=== PATIENT | female | born 1935 | race Caucasian/White ===

== ENCOUNTER 2017-01-01 13:32 | Emergency (ER) | payer MEDICARE, OTHER, MEDICAID ==
--- NOTE | 2017-01-01 15:00 | EDM.PDOC ---
ED HPI Trauma - General Chief Complaint: Lower Extremity Injury/Pain Stated Complaint: R HIP PAIN Time Seen by Provider: 01/01/17 14:00 Source: Reports: Patient, Old records ( ER visit) History Limitations: Reports: No limitations - History of Present Illness INITIAL COMMENTS - FREE TEXT/NARRATIVE: Patient presents for evaluation and treatment of right hip pain. Patient reports that she has been experiencing right hip pain she fell in August. She was seen in our ER after the fall. She had x-rays done which were negative. She states since then she saw her primary care provider who sent her to physical therapy. she feels that physical therapy has worsened the pain. She reports it is located in the right hip and radiates to the right knee and right rectum. She denies any falls since her August fall. She says she's been taking 2 extra strength Tylenol every 6 hours but continues to have worsening pain. She states that she's been sitting on ice all day due to the pain. She is supposed to see her primary care provider today but the bus did not come and was unable to be rescheduled today. She was instructed to come to the ER for care. She's not having imaging since August. Denies any numbness or tingling to the right lower leg. She has been able to weight bear with a walker but reports pain with walking. Pain/Injury Location: Reports: pelvis (right hip) Associated Symptoms: Reports: trouble walking Allergies/ADRs: Allergies ciprofloxacin Allergy (Verified 01/01/17 13:50) Hypertension cortisone [Cortisone] Allergy (Verified 01/01/17 13:50) Rash gabapentin Allergy (Verified 01/01/17 13:50) Dizziness Home Medications: Ambulatory Orders Aspirin/Calcium Carbonate/Mag [Aspirin Buffered 325 mg Tab] 1 tab PO DAILY 10/27 [Confirmed 01/01/17] Estradiol [Estrace 0.01% Vaginal Crm] 1 dose VAG ASDIRECTED 10/27/14 [Confirmed 01/01/17] Hypromellose [GenTeal Severe Dry Eye Gel] 1 dose EYEBOTH QID PRN 10/27/14 [ Confirmed 01/01/17] Acetaminophen [Mapap] 1,000 mg PO TID 06/29/15 [Confirmed 01/01/17] Calcium Carb/Magnesium Oxid/D3 [Calcium Magnesium + D] 500 mg PO DAILY 06/29/15 [Confirmed 01/01/17] Diltiazem [Cardizem CD] 120 mg PO DAILY 06/29/15 [Confirmed 01/01/17] Levothyroxine [Synthroid] 88 mcg PO DAILY 06/29/15 [Confirmed 01/01/17] Lisinopril 20 mg PO DAILY 06/29/15 [Confirmed 01/01/17] Potassium 99 mg PO BEDTIME 06/29/15 [Confirmed 01/01/17] Simvastatin [Zocor] 40 mg PO BEDTIME 06/29/15 [Confirmed 01/01/17] Triamcinolone Acetonide [Triamcinolone Acetonide 0.1% Crm] 30 gm TOP BID [Confirmed 01/01/17] metFORMIN [Glucophage XR] 1,000 mg PO BID 06/29/15 [Confirmed 01/01/17] Past Medical History HEENT History: Reports: Impaired vision Cardiovascular History: Reports: Arrhythmia, Heart murmur, Hypertension Endocrine/Metabolic History: Reports: Diabetes, type II, Hypothyroidism - Past Surgical History GI Surgical History: Reports: Appendectomy Female Surgical History: Reports: Hysterectomy Musculoskeletal Surgical History: Reports: Knee replacement Other Musculoskeletal Surgeries/Procedures:: Tailbone surgery Social & Family History - Family History Family Medical History: Noncontributory - Tobacco Use Smoking Status *Q: Never Smoker Second Hand Smoke Exposure: No - Caffeine Use Caffeine Use: Reports: Coffee - Alcohol Use Days Per Week of Alcohol Use: 0 - Recreational Drug Use Recreational Drug Use: No Review of Systems - Review of Systems Review Of Systems: See Below Musculoskeletal: Reports: other (right hip pain that extends from the right hip to the right lateral knee and rectum) Neurological: Reports: Difficulty Walking (due to pain). Denies: Numbness, Tingling Trauma Exam - Physical Exam Exam: See Below Exam Limited By: No limitations General Appearance: Reports: alert, WD/WN, no apparent distress Respiratory Exam: Reports: no respiratory distress, lungs clear, normal breath sounds Cardiovascular: Reports: normal peripheral pulses, regular rate, rhythm, no murmur Back: Denies: vertebral tenderness Extremities: Reports: pain with movement (pain with internal and external rotation of the right hip; pain with flexion of the right hip; ), other ( previous right knee replacment scar). Denies: unable to bear weight Neurologic: Reports: alert, normal mood/affect Skin: Reports: Normal color, Warm/dry. Denies: Ecchymosis Course - Vital Signs Last Recorded V/S: Last Vital Signs Temp 36.3 C 01/01/17 13:45 Pulse 94 01/01/17 13:45 Resp 16 01/01/17 13:45 BP 162/74 H 01/01/17 13:45 Pulse Ox 96 01/01/17 13:45 - Radiology Interpretation Free Text/Narrative:: CT of the pelvis without contrast impression per Dr. Sue: 1. Sever degenerative change within the right hip. Degenerative change partially seen within the lower lumbar spine mostly involving the apophyseal joints. 2. No acute fracture is seen. CT Results Date: 01/01/17 - Re-Assessments/Exams Free Text/Narrative Re-Assessment/Exam: 01/01/17 15:[address] results with the patient. I feel the arthritis is likely causing her symptoms. I will prescribe tramadol for the pain. She has a walker at home. I will have her follow-up with orthopedics for further management and care. Discharge instructions as documented. Departure - Departure Time of Disposition: 16:02 Disposition: Home, Self-Care 01 Condition: fair Clinical Impression: Arthritis of right hip Referrals: Mandeep Frost Jr, MD [Primary Care Provider] - Arnold Topete MD [Physician] - Forms: ED Department Discharge Additional Instructions: Tramadol 50mg tabs 1 tab PO every 4-6 hours prn pain #20 called [facility]. They will deliver this tomorrow. Take the tramadol as prescribed. One tab every 4-6 hours as needed for severe pain. You may take this with Tylenol. Continue to ice the area. Continue use your walker for safety. Follow up with orthopedics within the next [address] Topete. Call [phone] to schedule with him. Or Dr. Mcarthur. Call [phone] to schedule with him. Please return to the ER should your symptoms change or worsen.
--- NOTE | 2017-01-01 15:04 | CT ---
CT pelvis Technique: Multiple axial sections through the pelvis and hips were obtained. Reconstructed coronal and sagittal images were also obtained. Findings: Severe joint space narrowing is seen within the right hip with subchondral cysts and degenerative sclerosis. Minimal joint space narrowing is seen within the left hip. Sacroiliac joints show vacuum phenomena. Degenerative change is partially visualized within the lower lumbar spine primarily involving the apophyseal joints. No fracture is appreciated. Impression: 1. Severe degenerative change within the right hip. Degenerative change partially seen within the lower lumbar spine mostly involving the apophyseal joints. 2. No acute fracture is seen. Diagnostic code #2
[2017-01-01 17:44] VITALS: BP 156/85
== END 2017-01-01 15:50 | disposition home or self-care (01) ==
LOC: JD.ED 13:32
DX: M16.11 Unilateral primary osteoarthritis, right hip (principal); I10 Essential (primary) hypertension; E11.9 Type 2 diabetes mellitus without complications; Z79.84 Long term (current) use of oral hypoglycemic drugs; E03.9 Hypothyroidism, unspecified; Z96.659 Presence of unspecified artificial knee joint; Z79.82 Long term (current) use of aspirin; Z79.899 Other long term (current) drug therapy; Z88.1 Allergy status to other antibiotic agents; Z88.8 Allergy status to other drugs, medicaments and biological substances
CPT/HCPCS: 72192; 72192-26; 99284; 99284-25

== ENCOUNTER 2017-04-22 12:45 | Inpatient (IN) | payer MEDICARE, OTHER, MEDICAID ==
[2017-05-20] MEDS ORDERED: Sodium Chloride 0.9% 10 ML Syringe FLUSH PRN (00:01)
[2017-05-20] MEDS ORDERED: Lidocaine 1%/Sod Bicarbonate in NS 8.4% 1 ML Syringe PRN (00:01)
[2017-05-20] MEDS ORDERED: Lactated Ringers 1,000 ML IV SCH (00:01)
[2017-05-20] MEDS ORDERED: Ondansetron 4 MG/2 ML SDV IVPUSH PRN ×2 (09:14→14:10)
[2017-05-20] MEDS ORDERED: Morphine 8 MG, EPINEPHrine 0.3 MG, Cefuroxime 750 MG, Ketorolac 30 MG, Sodium Chloride ... ONE ×5 (10:30)
[2017-05-20] MEDS ORDERED: Iodine/Sodium Iodide 2% Tincture 30 ML Bottle ONE (11:05)
[2017-05-20] MEDS ORDERED: ceFAZolin 1 GM Vial ONE ×2 (11:05→11:52)
[2017-05-20] MEDS ORDERED: Bupivacaine 0.25% 30 ML SDV ONE (11:05)
--- NOTE | 2017-05-20 11:23 | PCM.PREANE ---
Preanesthetic Assessment - Anesthesia/Transfusion/Family Hx Anesthesia History: Prior Anesthesia Reaction Type of Anesthesia Reaction: Excessive Nausea/Vomiting Family History of Anesthesia Reaction: No Transfusion History: Prior Transfusion Without Reaction Intubation History: Unknown - Review of Systems General: No Symptoms, Fatigue (due to hip pain) Pulmonary: No Symptoms Cardiovascular: No Symptoms (History of HTN), Lightheadedness (with position changes.) Gastrointestinal: Decreased Appetite, Diarrhea Neurological: No Symptoms Other: Reports: Easy Bruising, Diabetes (1105 blood sugar = 97), Thyroid Problems (hypothyroid) - Physical Assessment NPO Status Date: 05/19/17 NPO Status Time: 23:00 Pulse: 86 O2 Sat by Pulse Oximetry: 97 Respiratory Rate: 16 Blood Pressure: 133/74 Temperature: 37.1 C Height: 1.57 m Weight: 54.885 kg ASA Class: 2 Mental Status: Alert & Oriented x3 Airway Class: Mallampati = 2 Dentition: Reports: Dentures (upper ), Missing Tooth/Teeth (bottom) Thyro-Mental Finger Breadths: 3 Mouth Opening Finger Breadths: 3 ROM/Head Extension: Full Lungs: Clear to Auscultation, Normal Respiratory Effort Cardiovascular: Regular Rate, Regular Rhythm, No Murmurs - Lab Values: Laboratory Last Values POC Glucose 97 mg/dL (83-110) 05/20/17 11:05 MRSA (PCR) Negative 05/08/17 08:16 Lab values noted and acceptable to proceed with scheduled procedure. - Imaging/EKG Impressions: EKG: SR, Right BBB, Old inferior infarct, with a normal echocardiogram noted with EF= 75% CXR: unremarkable on 2014 - Allergies Allergies/Adverse Reactions: Allergies Allergy/AdvReac Type Severity Reaction Status Date / Time cortisone [Cortisone] Allergy Rash Verified 05/17/17 12:58 ciprofloxacin AdvReac Hypertensio Verified 05/17/17 12:58 n gabapentin AdvReac Dizziness Verified 05/17/17 12:58 - Anesthesia Plan Pre-Op Medication Ordered: None - Acknowledgements Anesthesia Type Planned: Spinal Pt an Appropriate Candidate for the Planned Anesthesia: Yes Alternatives and Risks of Anesthesia Discussed w Pt/Guardian: Yes Pt/Guardian Understands and Agrees with Anesthesia Plan: Yes PreAnesthesia Questionnaire HEENT History: Reports: Impaired Vision, Other (See Below) Other HEENT History: wears glasses, upper denture Cardiovascular History: Reports: Arrhythmia, Heart Murmur, Hypertension Respiratory History: Reports: None Gastrointestinal History: Reports: None Genitourinary History: Reports: 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 Musculoskeletal History: Reports: Other (See Below) Other Musculoskeletal History: degenreative joint disease Neurological History: Reports: None Psychiatric History: Reports: None Endocrine/Metabolic History: Reports: Diabetes, Type II, Hypothyroidism Hematologic History: Reports: None Immunologic History: Reports: None Oncologic (Cancer) History: Reports: None Dermatologic History: Reports: None - Past Surgical History Head Surgeries/Procedures: Reports: None HEENT Surgical History: Reports: Cataract Surgery Respiratory Surgical History: Reports: None GI Surgical History: Reports: Appendectomy, Colonoscopy Female Surgical History: Reports: Hysterectomy Male Surgical History: Reports: None Endocrine Surgical History: Reports: Thyroidectomy Neurological Surgical History: Reports: None Musculoskeletal Surgical History: Reports: Knee Replacement Other Musculoskeletal Surgeries/Procedures:: Tailbone surgery Oncologic Surgical History: Reports: None Dermatological Surgical History: Reports: None - SUBSTANCE USE Smoking Status *Q: Never Smoker Second Hand Smoke Exposure: No Days Per Week of Alcohol Use: 0 Recreational Drug Use History: No - HOME MEDS Home Medications: Home Meds Estradiol [Estrace 0.01% Vaginal Crm] 1 dose VAG ASDIRECTED 10/27/14 [History] Hypromellose [GenTeal Severe Dry Eye Gel] 1 dose EYEBOTH QID PRN 10/27/14 [ History] Levothyroxine [Synthroid] 88 mcg PO DAILY 06/29/15 [History] Lisinopril 20 mg PO DAILY 06/29/15 [History] Potassium 99 mg PO BEDTIME 06/29/15 [History] Simvastatin [Zocor] 40 mg PO BEDTIME 06/29/15 [History] metFORMIN [Glucophage XR] 1,000 mg PO DAILY 06/29/15 [History] Acetaminophen [Tylenol Extra Strength] 1,000 mg PO TID PRN 05/17/17 [History] Aspirin 81 mg PO DAILY 05/17/17 [History] Ca Carbonate/Vitamin D3/Vit K [Calcium + D Soft Chewable Tab] 1 tab PO DAILY [History] Celecoxib 200 mg PO DAILY 05/17/17 [History] Diltiazem HCl [Diltiazem 24Hr ER] 120 mg PO DAILY 05/17/17 [History] Levothyroxine [Synthroid] 88 mcg PO DAILY 05/17/17 [History] metFORMIN [Glucophage XR] 500 mg PO QPM 05/17/17 [History] traMADol HCl [Tramadol HCl] 50 mg PO Q4H PRN 05/17/17 [History] - CURRENT (IN HOUSE) MEDS Current Meds: Current Medications Hydrocodone Bitart/Acetaminophen ([place] 325-5 Mg) 1 - 2 tab PO Q4H PRN PRN Reason: Pain Aspirin (Ecotrin) 325 mg PO BID [facility] Bisacodyl (Dulcolax) 5 mg PO DAILY PRN PRN Reason: Constipation Docusate Sodium (Colace) 100 mg PO BID [facility] Famotidine (Pepcid) 20 mg PO Q12H [facility] Lactated Ringer's (Ringers, Lactated) 1,000 mls @ 125 mls/hr IV ASDIRECTED [facility] Stop: 05/20/17 23:00 Cefazolin Sodium/Dextrose 2 gm (/ Premix) 50 mls @ 100 mls/hr IV Q8H [facility] Stop: 05/21/17 01:44 Lidocaine/Sodium Bicarbonate (Buffered Lidocaine 1% In Ns 8.4%) 0.25 ml .XX ONETIME PRN PRN Reason: Prior to IV Start Stop: 05/20/17 18:00 Magnesium Hydroxide (Milk Of Magnesia) 30 ml PO BID PRN PRN Reason: Constipation Morphine Sulfate (Morphine) 2 mg IVPUSH Q2H PRN PRN Reason: Breakthrough Pain Multivitamins (Thera) 1 each PO WITHBREAKFAST [facility] Naloxone HCl (Narcan) 0.1 mg IVPUSH Q5M PRN PRN Reason: Oversedation Ondansetron HCl (Zofran) 4 mg IVPUSH Q6H PRN PRN Reason: Nausea/Vomiting Senna (Senna) 8.6 mg PO BID PRN PRN Reason: Constipation Sodium Chloride (Saline Flush) 10 ml FLUSH ASDIRECTED PRN PRN Reason: Keep Vein Open Stop: 05/20/17 18:00 Discontinued Medications Morphine Sulfate 8 mg/Epinephrine HCl 0.3 mg/Cefuroxime Sodium 750 mg/Ketorolac Tromethamine 30 mg/Sodium Chloride 27.9 ml 0 mg .XX ONETIME ONE Stop: 05/20/17 10:31
[2017-05-20] MEDS ORDERED: Scopolamine 1.5 MG Transdermal Patch TRDERM ONE (11:45)
[2017-05-20] MEDS ORDERED: Propofol 200 MG/20 ML SDV ONE ×3 (11:51→13:45)
[2017-05-20] MEDS ORDERED: fentaNYL 100 MCG/2 ML SDV ONE (11:52)
[2017-05-20] MEDS ORDERED: Morphine PF 10 MG/10 ML SDV ONE (11:57)
[2017-05-20] MEDS ORDERED: Vancomycin 1 GM SDV ONE (11:58)
[2017-05-20] MEDS ORDERED: Morphine 2 MG/ML Syringe IVPUSH PRN (12:00)
[2017-05-20] MEDS ORDERED: Magnesium Hydroxide 400 MG/5 ML Susp 30 ML Cup PO PRN (12:00)
[2017-05-20] MEDS ORDERED: Sennosides 8.6 MG Tab PO PRN (12:00)
[2017-05-20] MEDS ORDERED: Bisacodyl 5 MG Tab PO PRN (12:00)
[2017-05-20] MEDS ORDERED: Naloxone 0.4 MG/ML SDV IVPUSH PRN (12:00)
[2017-05-20] MEDS ORDERED: diphenhydrAMINE 50 MG/ML SDV IVPUSH PRN (14:10)
--- NOTE | 2017-05-20 14:29 | PCM.POSTAN ---
POST ANESTHESIA ASSESSMENT - MENTAL STATUS Mental Status: Alert, Oriented - VITAL SIGNS Pulse Rate: 82 SaO2: 94 Resp Rate: 12 Blood Pressure: 116/59 Temperature: 97 C - RESPIRATORY Respiratory Status: Respiratory Rate WNL, Airway Patent, O2 Saturation Stable, Supplemental Oxygen - CARDIOVASCULAR CV Status: Pulse Rate WNL, Blood Pressure Stable - GASTROINTESTINAL GI Status: No Symptoms - PAIN Pain Score: 0 - POST OP HYDRATION Hydration Status: Adequate & Stable
--- NOTE | 2017-05-20 15:14 | PCM.CONS ---
H&P History of Present Illness - General Date of Service: 05/20/17 Admit Problem/Dx: Admission Diagnosis/Problem Admission Diagnosis/Problem Osteoarthritis of hip Source of Information: Patient, Old Records, Provider, RN Notes Reviewed History Limitations: Reports: Physical Impairment - History of Present Illness Initial Comments - Free Text/Narative: This is a 81-year-old, white female, with past medical history of HTN, DM2, Hypothyroidism, and OA/DJD who underwent right total hip arthroplasty post operative day zero. Patient is doing relatively well but her pressures are somewhat elevated. Currently, her pain is controlled. She denies any acute issues. Hospital Medicine was consulted for postoperative care. Right Hip Pain Score (Numeric/FACES): 10 - Related Data Allergies/Adverse Reactions: Allergies Allergy/AdvReac Type Severity Reaction Status Date / Time cortisone [Cortisone] Allergy Rash Verified 05/20/17 11:50 ciprofloxacin AdvReac Hypertensio Verified 05/20/17 11:50 n gabapentin AdvReac Dizziness Verified 05/20/17 11:50 Home Medications: Home Meds Estradiol [Estrace 0.01% Vaginal Crm] 1 dose VAG ASDIRECTED 10/27/14 [History] Hypromellose [GenTeal Severe Dry Eye Gel] 1 dose EYEBOTH TID PRN 10/27/14 [ History] Lisinopril 20 mg PO DAILY 06/29/15 [History] Potassium 99 mg PO BEDTIME 06/29/15 [History] Simvastatin [Zocor] 40 mg PO BEDTIME 06/29/15 [History] metFORMIN [Glucophage XR] 1,000 mg PO DAILY 06/29/15 [History] Acetaminophen [Tylenol Extra Strength] 1,000 mg PO TID PRN 05/17/17 [History] Aspirin 81 mg PO DAILY 05/17/17 [History] Ca Carbonate/Vitamin D3/Vit K [Calcium + D Soft Chewable Tab] 1 tab PO DAILY [History] Celecoxib 200 mg PO DAILY 05/17/17 [History] Diltiazem HCl [Diltiazem 24Hr ER] 120 mg PO DAILY 05/17/17 [History] Levothyroxine [Synthroid] 88 mcg PO DAILY 05/17/17 [History] metFORMIN [Glucophage XR] 500 mg PO QPM 05/17/17 [History] traMADol HCl [Tramadol HCl] 50 mg PO Q4H PRN 05/17/17 [History] Sodium Chloride 3.5 gm OP DAILY 05/20/17 [History] Past Medical History HEENT History: Reports: Impaired Vision, Other (See Below) Other HEENT History: wears glasses, upper denture Cardiovascular History: Reports: Arrhythmia, Heart Murmur, Hypertension Respiratory History: Reports: None Gastrointestinal History: Reports: None Genitourinary History: Reports: None 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 Musculoskeletal History: Reports: Other (See Below) Other Musculoskeletal History: degenreative joint disease Neurological History: Reports: None Psychiatric History: Reports: None Endocrine/Metabolic History: Reports: Diabetes, Type II, Hypothyroidism Hematologic History: Reports: None Immunologic History: Reports: None Oncologic (Cancer) History: Reports: None Dermatologic History: Reports: None - Past Surgical History Head Surgeries/Procedures: Reports: None HEENT Surgical History: Reports: Cataract Surgery Respiratory Surgical History: Reports: None GI Surgical History: Reports: Appendectomy, Colonoscopy Female Surgical History: Reports: Hysterectomy Male Surgical History: Reports: None Endocrine Surgical History: Reports: Thyroidectomy Neurological Surgical History: Reports: None Musculoskeletal Surgical History: Reports: Knee Replacement Other Musculoskeletal Surgeries/Procedures:: Tailbone surgery Oncologic Surgical History: Reports: None Dermatological Surgical History: Reports: None Social & Family History - Family History Family Medical History: Noncontributory - Tobacco Use Smoking Status *Q: Never Smoker Second Hand Smoke Exposure: No - Caffeine Use Caffeine Use: Reports: Coffee - Alcohol Use Days Per Week of Alcohol Use: 0 - Recreational Drug Use Recreational Drug Use: No H&P Review of Systems - Review of Systems: Review Of Systems: See Below General: Denies: Fever, Chills, Malaise, Weakness HEENT: Denies: Contact Lenses Pulmonary: Denies: Shortness of Breath Cardiovascular: Denies: Chest Pain, Lightheadedness Gastrointestinal: Denies: Abdominal Pain, Nausea, Vomiting Genitourinary: Reports: No Symptoms Musculoskeletal: Reports: No Symptoms Skin: Reports: No Symptoms Psychiatric: Denies: Confusion, Depression, Anxiety, Hallucinations, Suicidal Ideation, Homicidal Ideation Neurological: Reports: Difficulty Walking, Gait Disturbance. Denies: Confusion , Dizziness, Weakness Hematologic/Lymphatic: Reports: No Symptoms Immunologic: Reports: No Symptoms Exam - Exam Exam: See Below - Vital Signs Vital Signs: Last Vital Signs Temp 36.6 C 05/20/17 15:10 Pulse 82 05/20/17 14:29 Resp 16 05/20/17 15:10 BP 133/68 05/20/17 15:10 Pulse Ox 95 05/20/17 15:10 Weight: 54.885 kg - Exam General: Alert, Oriented, Cooperative. No: Mild Distress HEENT: Conjunctiva Clear, EACs Clear, EOMI, Hearing Intact, Mucosa Moist & [place] , Nares Patent, Normal Nasal Septum, Posterior Pharynx Clear, Pupils Equal, Pupils Reactive Neck: Supple, Trachea Midline, +2 Carotid Pulse wo Bruit, Full Range of Motion Lungs: Clear to Auscultation, Normal Respiratory Effort Cardiovascular: Regular Rate, Regular Rhythm GI/Abdominal Exam: Normal Bowel Sounds, Soft, Non-Tender, No Organomegaly, No Distention, No Abnormal Bruit, No Mass (Female) Exam: Deferred Rectal (Female) Exam: Deferred Back Exam: Normal Inspection, Decreased Range of Motion Extremities: Normal Inspection, Normal Range of Motion, Non-Tender, No Pedal Edema, Normal Capillary Refill Peripheral Pulses: 2+: Posterior Tibial (L), Posterior Tibial (R), Dorsalis Pedis (L), Dorsalis Pedis (R) Skin: Warm, Dry, Intact Neuro Extensive - Mental Status: Oriented x3, Normal Cognition, Memory Intact Neuro Extensive - Motor, Sensory, Reflexes: CN II-XII Intact (limited but grossly intact), Abnormal Gait Psychiatric: Alert, Normal Affect, Normal Mood - Patient Data Lab Results Last 24 hrs: Laboratory Results - last 24 hr 05/20/17 05/20/17 Range/Units 11:05 11:40 POC Glucose 97 (83-110) mg/dL Blood Type O POSITIVE Gel Antibody Screen Negative Consult PN Assessment/Plan POD#: 0 Procedures: Procedures ASSAY OF LIPASE (07/09/15) ASSAY OF TROPONIN QUANT (07/09/15) BONE IMAGING 3 PHASE (12/26/15) C-REACTIVE PROTEIN (05/16/17) CHEST X-RAY 1 VIEW FRONTAL (07/09/15) COMPLETE CBC W/AUTO DIFF WBC (07/09/15) COMPREHEN METABOLIC PANEL (07/09/15) CT PELVIS W/O DYE (01/01/17) DRAIN/INJ JOINT/BURSA W/O US (02/12/17) ELECTROCARDIOGRAM TRACING (07/09/15) EMERGENCY DEPT VISIT (01/01/17) EMERGENCY DEPT VISIT (09/03/16) EMERGENCY DEPT VISIT (07/09/15) EMERGENCY DEPT VISIT (06/29/15) EMERGENCY DEPT VISIT (02/03/14) INJECT SPINE LUMBAR/SACRAL (10/27/14) ROUTINE VENIPUNCTURE (05/16/17) THROMBOPLASTIN TIME PARTIAL (05/16/17) URINALYSIS AUTO W/SCOPE (10/10/16) URINE CULTURE/COLONY COUNT (10/12/16) X-RAY EXAM HIP UNI 2-3 VIEWS (09/03/16) X-RAY EXAM OF KNEE 3 (09/03/16) Problem List Initiated/Reviewed/Updated: Yes Plan: Assessment: Acute: Post-Operative Care State - Stable - Continue to monitor for hemodynamic instability S/p Tight Total Hip Arthroplasty - Stable - DVT and Pain Management as per primary team Hx/o Chronic Right Hip Pain 2/2 OA/DJD - Pain Management as per primary team Post Operative Hypertension - BPs: 142-164 mmHg systolic and 65-90 mmHg diastolic - PRN anti-hypertensive medications Chronic: HTN DM2 Hypothyroidism OA/DJD Plan: She is clinically stable Routine AM labs Accu-check AM/HS ISS low dose Continue home meds PT/OT consult IS q2 awake Thank you for the opportunity to participate in the management of this patient Requesting Provider: Dr. Mcarthur Date Consult Requested: 05/20/17 Patient History Reviewed: Yes Admission H&P Reviewed: Yes Consult Result/Summary: Clinically Stable but a little hypertensive Notified Requestor: Yes
--- NOTE | 2017-05-20 15:27 | CR ---
Pelvis and right hip: AP of the pelvis was obtained as well as lateral view of the right hip. Comparison: Previous CT pelvis exam of 01/01/17. Right hip prosthesis is seen. Components are aligned. Underlying bony structures are intact. Joint space within the left hip is maintained. Sacroiliac joints on the right side are slightly narrowed. Impression: 1. Recently placed right hip prosthesis. 2. Other incidental findings. Diagnostic code #3
[2017-05-20] MEDS ORDERED: Pneumococcal Polyvalent-23 Vaccine 0.5 ML SDV IM ONE (16:30)
[2017-05-20] MEDS: Acetaminophen/HYDROcodone 325-5 MG Tab PO PRN ×2 (18:05→23:54)
[2017-05-20] MEDS ORDERED: Metoprolol Tartrate 5 MG/5 ML SDV IVPUSH PRN (18:45)
[2017-05-20] MEDS ORDERED: Acetaminophen 325 MG Tab PO PRN (18:45)
[2017-05-20] MEDS ORDERED: hydrALAZINE 20 MG/ML SDV IVPUSH PRN (18:45)
[2017-05-20] MEDS ORDERED: 50% Dextrose in Water 50 ML Syringe IVPUSH PRN (19:00)
[2017-05-20] MEDS: Insulin Aspart 100 Units/ML 3 ML Pen SUBCUT SCH ×2 (20:15→21:14)
[2017-05-20] MEDS ORDERED: Simvastatin 40 MG Tab PO SCH (21:00)
[2017-05-20] MEDS ORDERED: Famotidine 20 MG Tab PO SCH (21:00)
[2017-05-20] MEDS ORDERED: Hypromellose 0.5% Ophth Soln 15 ML Bottle EYEBOTH PRN (21:17)
[2017-05-20] MEDS: ceFAZolin 2 GM in Premix Bag 1 BAG IV SCH (21:18)
[2017-05-20] MEDS: Docusate Sodium 100 MG Cap PO SCH (21:25)
[2017-05-21] MEDS: ceFAZolin 2 GM in Premix Bag 1 BAG IV SCH ×2 (04:48→11:45)
[2017-05-21] MEDS: Acetaminophen/HYDROcodone 325-5 MG Tab PO PRN ×2 (04:52→11:46)
[2017-05-21] MEDS: Insulin Aspart 100 Units/ML 3 ML Pen SUBCUT SCH ×2 (06:10→11:33)
[2017-05-21] MEDS ORDERED: Multivitamins,Therapeutic Tab PO SCH (07:00)
[2017-05-21] MEDS ORDERED: Sodium Chloride 0.9% 500 ML IV ONE (07:10)
[2017-05-21] MEDS: Sodium Chloride 0.9% 1,000 ML ONE ×2 (07:40→07:42)
--- NOTE | 2017-05-21 08:50 | PCM48HPAN ---
Post Anesthesia Note - EVALUATION WITHIN 48HRS OF ANESTHETIC Vital Signs in Normal Range: Yes Patient Participated in Evaluation: Yes Respiratory Function Stable: Yes Airway Patent: Yes Cardiovascular Function Stable: Yes Hydration Status Stable: Yes Pain Control Satisfactory: Yes Nausea and Vomiting Control Satisfactory: Yes Mental Status Recovered: Yes - COMMENTS/OBSERVATIONS Free Text/Narrative:: Patient denied any headache, residual numbness/tingling to lower extremities, or back pain.
[2017-05-21] MEDS ORDERED: Famotidine 20 MG Tab PO SCH (09:00)
[2017-05-21] MEDS ORDERED: Levothyroxine 88 MCG Tab PO SCH (09:00)
[2017-05-21] MEDS ORDERED: Lisinopril 20 MG Tab PO SCH (09:00)
[2017-05-21] MEDS ORDERED: metFORMIN 500 MG Tab PO SCH ×2 (09:00→16:00)
[2017-05-21] MEDS ORDERED: Aspirin 325 MG Tab.EC PO SCH (09:00)
[2017-05-21] MEDS ORDERED: Diltiazem 120 MG Cap.CD PO SCH (09:00)
[2017-05-21] MEDS ORDERED: Calcium Carbonate/Vitamin D3 1500 MG-200 Units Tab PO SCH (09:00)
[2017-05-21] MEDS: Docusate Sodium 100 MG Cap PO SCH (09:08)
[2017-05-21] MEDS ORDERED: Diphtheria,Pertussis(Acell),Tetanus Vaccine 0.5 ML SDV IM ONE (09:14)
--- NOTE | 2017-05-21 12:52 | PCM.CONSN ---
- General Info Date of Service: 05/21/17 Admission Dx/Problem (Free Text): Admission Diagnosis/Problem Admission Diagnosis/Problem Osteoarthritis of hip POD #[address] Mcarthur Patient is doing well today, no pain currently, no nausea. Working with PT/OT. Plans for DC home today with her daughter. Hgb is stable at 9.5 Functional Status: Reports: Pain Controlled, Tolerating Diet, Ambulating, Urinating, Incentive Spirometry. Denies: New Symptoms - Review of Systems General: Reports: No Symptoms HEENT: Reports: No Symptoms Pulmonary: Reports: No Symptoms Cardiovascular: Reports: No Symptoms Gastrointestinal: Reports: No Symptoms Genitourinary: Reports: No Symptoms Musculoskeletal: Reports: Leg Pain Skin: Reports: No Symptoms Neurological: Reports: No Symptoms Psychiatric: Reports: No Symptoms - Patient Data Vitals - Most Recent: Last Vital Signs Temp 98.4 F 05/21/17 08:13 Pulse 80 05/21/17 09:08 Resp 14 05/21/17 08:13 BP 109/63 05/21/17 09:10 Pulse Ox 98 05/21/17 08:13 Weight - Most Recent: 126 lb I&O - Last 24 Hours: Intake & Output 05/20/17 05/21/17 05/21/17 22:59 06:59 14:59 Intake Total 560 975 180 Output Total 175 150 Balance 385 825 180 Lab Results Last 24 Hours: Laboratory Results - last 24 hr 05/20/17 05/21/17 05/21/17 Range/Units 21:11 06:05 06:05 WBC 13.67 H (3.98-10.04) K/mm3 RBC 3.48 L (3.98-5.22) M/mm3 Hgb 9.5 L (11.2-15.7) gm/L Hct 30.8 L (34.1-44.9) % MCV 88.5 (79.4-94.8) fl MCH 27.3 (25.6-32.2) pg MCHC 30.8 L (32.2-35.5) g/dl RDW Std Deviation 46.6 H (36.4-46.3) fL Plt Count 471 H (182-369) K/mm3 MPV 9.3 L (9.4-12.3) fl Neut % (Auto) 68.4 (34.0-71.1) % Lymph % (Auto) 12.9 L (19.3-51.7) % Hawkins % (Auto) 17.6 H (4.7-12.5) % Eos % (Auto) 0.2 L (0.7-5.8) Baso % (Auto) 0.3 (0.1-1.2) % Neut # (Auto) 9.35 H (1.56-6.13) K/mm3 Lymph # (Auto) 1.76 (1.18-3.74) K/mm3 Hawkins # (Auto) 2.41 H (0.24-0.36) K/mm3 Eos # (Auto) 0.03 L (0.04-0.36) K/mm3 Baso # (Auto) 0.04 (0.01-0.08) K/mm3 Manual Slide Review Abnormal smear Sodium 136 (136-145) mEq/L Potassium 4.1 (3.5-5.1) mEq/L Chloride 102 (98-107) mEq/L Carbon Dioxide 28 (21-32) mEq/L Anion Gap 10.1 (5-15) BUN 15 (7-18) mg/dL Creatinine 0.9 (0.55-1.02) mg/dL Est Cr Clr Drug Dosing 38.25 mL/min Estimated GFR (MDRD) > 60 (>60) mL/min BUN/Creatinine Ratio 16.7 (14-18) Glucose 117 H (83-115) mg/dL POC Glucose 141 H (83-110) mg/dL Calcium 8.6 (8.5-10.1) mg/dL Total Bilirubin 0.2 (0.2-1.0) mg/dL AST 23 (15-37) U/L ALT 19 (14-59) U/L Alkaline Phosphatase 66 (46-116) U/L Total Protein 5.6 L (6.4-8.2) g/dl Albumin 2.9 L (3.4-5.0) g/dl Globulin 2.7 gm/dL Albumin/Globulin Ratio 1.1 (1-2) 05/21/17 05/21/17 Range/Units 06:06 11:25 WBC (3.98-10.04) K/mm3 RBC (3.98-5.22) M/mm3 Hgb (11.2-15.7) gm/L Hct (34.1-44.9) % MCV (79.4-94.8) fl MCH (25.6-32.2) pg MCHC (32.2-35.5) g/dl RDW Std Deviation (36.4-46.3) fL Plt Count (182-369) K/mm3 MPV (9.4-12.3) fl Neut % (Auto) (34.0-71.1) % Lymph % (Auto) (19.3-51.7) % Hawkins % (Auto) (4.7-12.5) % Eos % (Auto) (0.7-5.8) Baso % (Auto) (0.1-1.2) % Neut # (Auto) (1.56-6.13) K/mm3 Lymph # (Auto) (1.18-3.74) K/mm3 Hawkins # (Auto) (0.24-0.36) K/mm3 Eos # (Auto) (0.04-0.36) K/mm3 Baso # (Auto) (0.01-0.08) K/mm3 Manual Slide Review Sodium (136-145) mEq/L Potassium (3.5-5.1) mEq/L Chloride (98-107) mEq/L Carbon Dioxide (21-32) mEq/L Anion Gap (5-15) BUN (7-18) mg/dL Creatinine (0.55-1.02) mg/dL Est Cr Clr Drug Dosing mL/min Estimated GFR (MDRD) (>60) mL/min BUN/Creatinine Ratio (14-18) Glucose (83-115) mg/dL POC Glucose 133 H 169 H (83-110) mg/dL Calcium (8.5-10.1) mg/dL Total Bilirubin (0.2-1.0) mg/dL AST (15-37) U/L ALT (14-59) U/L Alkaline Phosphatase (46-116) U/L Total Protein (6.4-8.2) g/dl Albumin (3.4-5.0) g/dl Globulin gm/dL Albumin/Globulin Ratio (1-2) Med Orders - Current: Current Medications Acetaminophen (Tylenol) 975 mg PO TID PRN PRN Reason: Pain Hydrocodone Bitart/Acetaminophen ([place] 325-5 Mg) 1 - 2 tab PO Q4H PRN PRN Reason: Pain Last Admin: 05/21/17 11:46 Dose: 2 tab Artificial Tears (Isopto Tears 0.5% Ophth Soln) 0 ml EYEBOTH TID PRN PRN Reason: Dry Eyes Aspirin (Ecotrin) 325 mg PO BID [facility] Last Admin: 05/21/17 09:09 Dose: 325 mg Bisacodyl (Dulcolax) 5 mg PO DAILY PRN PRN Reason: Constipation Calcium Carbonate (Calcium Carbonate/Vitamin D 1500 Mg-200 Unit) 1 tab PO DAILY [facility] Last Admin: 05/21/17 09:12 Dose: 1 tab Dextrose/Water (Dextrose 50% In Water) 50 ml IVPUSH ASDIRECTED PRN PRN Reason: Hypoglycemia Diltiazem HCl (Cardizem Cd) 120 mg PO DAILY [facility] Last Admin: 05/21/17 09:08 Dose: 120 mg Docusate Sodium (Colace) 100 mg PO BID [facility] Last Admin: 05/21/17 09:08 Dose: 100 mg Famotidine (Pepcid) 20 mg PO DAILY [facility] Last Admin: 05/21/17 09:11 Dose: 20 mg Hydralazine HCl (Apresoline) 10 mg IVPUSH Q4H PRN PRN Reason: Hypertension Insulin Aspart (Novolog) 0 unit SUBCUT QIDACANDBED [facility] PRN Reason: Protocol Last Admin: 05/21/17 11:33 Dose: 1 unit Levothyroxine Sodium (Synthroid) 88 mcg PO DAILY [facility] Last Admin: 05/21/17 09:09 Dose: 88 mcg Lisinopril (Prinivil) 20 mg PO DAILY [facility] Last Admin: 05/21/17 09:10 Dose: 20 mg Magnesium Hydroxide (Milk Of Magnesia) 30 ml PO BID PRN PRN Reason: Constipation Metformin HCl (Glucophage) 500 mg PO ACDINNER [facility] Metformin HCl (Glucophage) 1,000 mg PO ACBRK [facility] Metoprolol Tartrate (Lopressor) 5 mg IVPUSH Q4H PRN PRN Reason: Tachycardia Morphine Sulfate (Morphine) 2 mg IVPUSH Q2H PRN PRN Reason: Breakthrough Pain Multivitamins (Thera) 1 each PO WITHBREAKFAST [facility] Last Admin: 05/21/17 06:05 Dose: 1 each Naloxone HCl (Narcan) 0.1 mg IVPUSH Q5M PRN PRN Reason: Oversedation Ondansetron HCl (Zofran) 4 mg IVPUSH Q6H PRN PRN Reason: Nausea/Vomiting Last Admin: 05/20/17 21:20 Dose: 4 mg Estradiol Vaginal (Cream) 0 each VAG ASDIRECTED [facility] Potassium 99 Mg 0 each PO DAILY@1700 [facility] Sodium Chloride 3.5 (Gm Opth Ointment) 0 each .XX DAILY@1930 [facility] Senna (Senna) 8.6 mg PO BID PRN PRN Reason: Constipation Simvastatin (Zocor) 40 mg PO BEDTIME [facility] Last Admin: 05/20/17 21:25 Dose: 40 mg Discontinued Medications Bupivacaine HCl (Marcaine 0.25%) Confirm Administered Dose 30 ml .ROUTE .STK- MED ONE Stop: 05/20/17 11:06 Last Admin: 05/20/17 13:45 Dose: 30 ml Cefazolin Sodium (Ancef) Confirm Administered Dose 2 gm .ROUTE .STK-MED ONE Stop: 05/20/17 11:06 Last Admin: 05/20/17 13:45 Dose: 2 gm Cefazolin Sodium (Ancef) Confirm Administered Dose 2 gm .ROUTE .STK-MED ONE Stop: 05/20/17 11:53 Morphine Sulfate 8 mg/Epinephrine HCl 0.3 mg/Cefuroxime Sodium 750 mg/Ketorolac Tromethamine 30 mg/Sodium Chloride 27.9 ml 0 mg .XX ONETIME ONE Stop: 05/20/17 10:31 Last Admin: 05/20/17 13:47 Dose: 788.3 mg Diphenhydramine HCl (Benadryl) 25 mg IVPUSH Q6H PRN PRN Reason: Pruritis Stop: 05/20/17 18:00 Diphtheria/Tetanus/Acell Pertussis (Adacel) 0.5 ml IM .ONCE ONE Stop: 05/21/17 09:15 Famotidine (Pepcid) 20 mg PO Q12H [facility] Last Admin: 05/20/17 21:25 Dose: 20 mg Fentanyl (Sublimaze) Confirm Administered Dose 100 mcg .ROUTE .STK-MED ONE Stop: 05/20/17 11:53 Lactated Ringer's (Ringers, Lactated) 1,000 mls @ 125 mls/hr IV ASDIRECTED [facility] Stop: 05/20/17 23:00 Last Admin: 05/20/17 11:10 Dose: 125 mls/hr Cefazolin Sodium/Dextrose 2 gm (/ Premix) 50 mls @ 100 mls/hr IV Q8H [facility] Stop: 05/21/17 12:29 Last Admin: 05/21/17 11:45 Dose: 100 mls/hr Sodium Chloride (Normal Saline) 500 mls @ 999 mls/hr IV .BOLUS ONE Stop: 05/21/17 07:40 Last Admin: 05/21/17 07:10 Dose: 999 mls/hr Sodium Chloride (Normal Saline) Confirm Administered Dose 1,000 mls @ as directed .ROUTE .STK-MED ONE Stop: 05/21/17 06:48 Last Admin: 05/21/17 07:42 Dose: Not Given Iodine (Iodine 2% Mild Tincture) Confirm Administered Dose 30 ml .ROUTE .STK- MED ONE Stop: 05/20/17 11:06 Last Admin: 05/20/17 13:40 Dose: 30 ml Lidocaine/Sodium Bicarbonate (Buffered Lidocaine 1% In Ns 8.4%) 0.25 ml .XX ONETIME PRN PRN Reason: Prior to IV Start Stop: 05/20/17 18:00 Last Admin: 05/20/17 11:09 Dose: 0.25 ml Metformin HCl (Glucophage) 1,000 mg PO DAILY [facility] Last Admin: 05/21/17 09:12 Dose: 1,000 mg Morphine Sulfate (Duramorph Pf) Confirm Administered Dose 10 mg .ROUTE .STK-MED ONE Stop: 05/20/17 11:58 Ondansetron HCl (Zofran) 4 mg IVPUSH ONETIME PRN PRN Reason: Nausea/Vomiting Stop: 05/20/17 18:00 Pneumococcal Polyvalent Vaccine (Pneumovax 23) 0.5 ml IM .ONCE ONE Stop: 05/20/17 16:31 Propofol (Diprivan 20 Ml) Confirm Administered Dose 200 mg .ROUTE .STK-MED ONE Stop: 05/20/17 11:52 Propofol (Diprivan 20 Ml) Confirm Administered Dose 200 mg .ROUTE .STK-MED ONE Stop: 05/20/17 13:45 Scopolamine (Transderm-Scop) 1.5 mg TRDERM ONETIME ONE Stop: 05/20/17 11:46 Last Admin: 05/20/17 11:40 Dose: 1.5 mg Sodium Chloride (Saline Flush) 10 ml FLUSH ASDIRECTED PRN PRN Reason: Keep Vein Open Stop: 05/20/17 18:00 Tranexamic Acid (Cyklokapron) Confirm Administered Dose 1,000 mg .ROUTE .STK- MED ONE Stop: 05/20/17 11:05 Last Admin: 05/20/17 13:58 Dose: 1,000 mg Vancomycin HCl (Vancomycin) Confirm Administered Dose 1 gm .ROUTE .STK-MED ONE Stop: 05/20/17 11:59 Last Admin: 05/20/17 14:00 Dose: 1 gm - Exam Quality Assessment: DVT Prophylaxis General: Alert, Oriented, Cooperative, No Acute Distress HEENT: Pupils Equal, EOMI, Mucous Membr. Moist/[place] Neck: Supple Lungs: Clear to Auscultation, Normal Respiratory Effort, Decreased Breath Sounds (bases) Cardiovascular: Regular Rate, Regular Rhythm GI/Abdominal Exam: Normal Bowel Sounds, Soft, No Organomegaly (Female) Exam: Deferred Back Exam: Normal Inspection Extremities: Other (Teds, SCD's, ice present to hip) Peripheral Pulses: 2+: Dorsalis Pedis (L), Dorsalis Pedis (R) Neurological: No New Focal Deficit Psy/Mental Status: Alert, Normal Affect, Normal Mood Consult PN Assessment/Plan POD#: 1 Procedures: Procedures ASSAY OF LIPASE (07/09/15) ASSAY OF TROPONIN QUANT (07/09/15) BONE IMAGING 3 PHASE (12/26/15) C-REACTIVE PROTEIN (05/16/17) CHEST X-RAY 1 VIEW FRONTAL (07/09/15) COMPLETE CBC W/AUTO DIFF WBC (07/09/15) COMPREHEN METABOLIC PANEL (07/09/15) CT PELVIS W/O DYE (01/01/17) DRAIN/INJ JOINT/BURSA W/O US (02/12/17) ELECTROCARDIOGRAM TRACING (07/09/15) EMERGENCY DEPT VISIT (01/01/17) EMERGENCY DEPT VISIT (09/03/16) EMERGENCY DEPT VISIT (07/09/15) EMERGENCY DEPT VISIT (06/29/15) EMERGENCY DEPT VISIT (02/03/14) INJECT SPINE LUMBAR/SACRAL (10/27/14) ROUTINE VENIPUNCTURE (05/16/17) THROMBOPLASTIN TIME PARTIAL (05/16/17) URINALYSIS AUTO W/SCOPE (10/10/16) URINE CULTURE/COLONY COUNT (10/12/16) X-RAY EXAM HIP UNI 2-3 VIEWS (09/03/16) X-RAY EXAM OF KNEE 3 (09/03/16) (1) S/P total hip arthroplasty SNOMED Code(s): 897766579478, 459193471902 Code(s): Z96.649 - PRESENCE OF UNSPECIFIED ARTIFICIAL HIP JOINT Priority: High Current Visit: Yes Qualifiers: Laterality: right Qualified Code(s): Z96.641 - Presence of right artificial hip joint (2) Osteoarthritis SNOMED Code(s): 920733238 Code(s): M19.90 - UNSPECIFIED OSTEOARTHRITIS, UNSPECIFIED SITE Priority: High Current Visit: Yes Qualifiers: Osteoarthritis location: hip Osteoarthritis type: primary Laterality: right Qualified Code(s): M16.11 - Unilateral primary osteoarthritis, right hip (3) Diabetes type 2, controlled SNOMED Code(s): 04339356 Code(s): E11.9 - TYPE 2 DIABETES MELLITUS WITHOUT COMPLICATIONS Priority: High Current Visit: Yes Qualifiers: Diabetes mellitus complication status: without complication Diabetes mellitus termite control representative insulin use: without termite control representative use Qualified Code(s): E11.9 - Type 2 diabetes mellitus without complications (4) HTN (hypertension) SNOMED Code(s): 58240883 Code(s): I10 - ESSENTIAL (PRIMARY) HYPERTENSION Priority: Medium Current Visit: Yes Qualifiers: Hypertension type: essential hypertension Qualified Code(s): I10 - Essential (primary) hypertension (5) Hypothyroid SNOMED Code(s): 15355957 Code(s): E03.9 - HYPOTHYROIDISM, UNSPECIFIED Priority: Medium Current Visit: No Qualifiers: Hypothyroidism type: unspecified Qualified Code(s): E03.9 - Hypothyroidism , unspecified Problem List Initiated/Reviewed/Updated: Yes Plan: I/P: S/P Lt TKA d/t Osteoarthritis -POD #[address] Mcarthur -Pain management and DVT prophylax per primary team -PT/OT -RT/IS -Hgb 9.5 today -VSS Chronic conditions: continue home meds HTN- stable DM- stable, SSI during hospital stay. A1C 5.7 on 05/14/17 by chart review/notes Hypothryoidism Other: CM/SW for assist with DC planning--Patient plans DC home with daughter today; OK for dc today from Hospitalist standpoint; doing well. Patient is Full Code Status
[2017-05-21] MEDS ORDERED: Tamsulosin 0.4 MG Cap.ER PO ONE (13:13)
[2017-05-21 15:58] VITALS: BP 109/94
[2017-05-21] MEDS ORDERED: SODIUM CHLORIDE SCH (19:30)
[2017-05-22] MEDS ORDERED: metFORMIN 500 MG Tab PO SCH (06:00)
--- NOTE | 2017-05-23 09:52 | PCM.SURGPN ---
- General Info Date of Service: 05/21/17 POD#: 1 Functional Status: Reports: Pain Controlled, Tolerating Diet, Ambulating, Urinating, Other (The pt has urinary retention following surgery, however, she has been able to void now.) - Review of Systems Musculoskeletal: Reports: Other (The pt has met inpatient therapy goals.) - Patient Data Vitals - Most Recent: Last Vital Signs Temp 98.4 F 05/21/17 15:14 Pulse 101 H 05/21/17 15:14 Resp 14 05/21/17 11:43 BP 109/94 H 05/21/17 15:14 Pulse Ox 95 05/21/17 15:14 Weight - Most Recent: 126 lb Med Orders - Current: Current Medications Discontinued Medications Acetaminophen (Tylenol) 975 mg PO TID PRN PRN Reason: Pain Hydrocodone Bitart/Acetaminophen ([place] 325-5 Mg) 1 - 2 tab PO Q4H PRN PRN Reason: Pain Last Admin: 05/21/17 11:46 Dose: 2 tab Artificial Tears (Isopto Tears 0.5% Ophth Soln) 0 ml EYEBOTH TID PRN PRN Reason: Dry Eyes Aspirin (Ecotrin) 325 mg PO BID COUNTS [facility]CLUDE 234 BEDS AT [facility] Last Admin: 05/21/17 09:09 Dose: 325 mg Bisacodyl (Dulcolax) 5 mg PO DAILY PRN PRN Reason: Constipation Bupivacaine HCl (Marcaine 0.25%) Confirm Administered Dose 30 ml .ROUTE .STK- MED ONE Stop: 05/20/17 11:06 Last Admin: 05/20/17 13:45 Dose: 30 ml Calcium Carbonate (Calcium Carbonate/Vitamin D 1500 Mg-200 Unit) 1 tab PO DAILY COUNTS INCLUDE 234 BEDS AT [facility] Last Admin: 05/21/17 09:12 Dose: 1 tab Cefazolin Sodium (Ancef) Confirm Administered Dose 2 gm .ROUTE .STK-MED ONE Stop: 05/20/17 11:06 Last Admin: 05/20/17 13:45 Dose: 2 gm Cefazolin Sodium (Ancef) Confirm Administered Dose 2 gm .ROUTE .STK-MED ONE Stop: 05/20/17 11:53 Morphine Sulfate 8 mg/Epinephrine HCl 0.3 mg/Cefuroxime Sodium 750 mg/Ketorolac Tromethamine 30 mg/Sodium Chloride 27.9 ml 0 mg .XX ONETIME ONE Stop: 05/20/17 10:31 Last Admin: 05/20/17 13:47 Dose: 788.3 mg Dextrose/Water (Dextrose 50% In Water) 50 ml IVPUSH ASDIRECTED PRN PRN Reason: Hypoglycemia Diltiazem HCl (Cardizem Cd) 120 mg PO DAILY COUNTS INCLUDE 234 BEDS AT [facility] Last Admin: 05/21/17 09:08 Dose: 120 mg Diphenhydramine HCl (Benadryl) 25 mg IVPUSH Q6H PRN PRN Reason: Pruritis Stop: 05/20/17 18:00 Diphtheria/Tetanus/Acell Pertussis (Adacel) 0.5 ml IM .ONCE ONE Stop: 05/21/17 09:15 Last Admin: 05/21/17 15:34 Dose: Not Given Docusate Sodium (Colace) 100 mg PO BID COUNTS INCLUDE 234 BEDS AT [facility] Last Admin: 05/21/17 09:08 Dose: 100 mg Famotidine (Pepcid) 20 mg PO Q12H COUNTS INCLUDE 234 BEDS AT [facility] Last Admin: 05/20/17 21:25 Dose: 20 mg Famotidine (Pepcid) 20 mg PO DAILY COUNTS INCLUDE 234 BEDS AT [facility] Last Admin: 05/21/17 09:11 Dose: 20 mg Fentanyl (Sublimaze) Confirm Administered Dose 100 mcg .ROUTE .STK-MED ONE Stop: 05/20/17 11:53 Hydralazine HCl (Apresoline) 10 mg IVPUSH Q4H PRN PRN Reason: Hypertension Lactated Ringer's (Ringers, Lactated) 1,000 mls @ 125 mls/hr IV ASDIRECTED COUNTS INCLUDE 234 BEDS AT [facility] Stop: 05/20/17 23:00 Last Admin: 05/20/17 11:10 Dose: 125 mls/hr Cefazolin Sodium/Dextrose 2 gm (/ Premix) 50 mls @ 100 mls/hr IV Q8H COUNTS INCLUDE 234 BEDS AT [facility] Stop: 05/21/17 12:29 Last Admin: 05/21/17 11:45 Dose: 100 mls/hr Sodium Chloride (Normal Saline) 500 mls @ 999 mls/hr IV .BOLUS ONE Stop: 05/21/17 07:40 Last Admin: 05/21/17 07:10 Dose: 999 mls/hr Sodium Chloride (Normal Saline) Confirm Administered Dose 1,000 mls @ as directed .ROUTE .STK-MED ONE Stop: 05/21/17 06:48 Last Admin: 05/21/17 07:42 Dose: Not Given Insulin Aspart (Novolog) 0 unit SUBCUT QIDACANDBED COUNTS INCLUDE 234 BEDS AT [facility] PRN Reason: Protocol Last Admin: 05/21/17 11:33 Dose: 1 unit Iodine (Iodine 2% Mild Tincture) Confirm Administered Dose 30 ml .ROUTE .STK- MED ONE Stop: 05/20/17 11:06 Last Admin: 05/20/17 13:40 Dose: 30 ml Levothyroxine Sodium (Synthroid) 88 mcg PO DAILY [facility]S INCLUDE 234 BEDS AT [facility] Last Admin: 05/21/17 09:09 Dose: 88 mcg Lidocaine/Sodium Bicarbonate (Buffered Lidocaine 1% In Ns 8.4%) 0.25 ml .XX ONETIME PRN PRN Reason: Prior to IV Start Stop: 05/20/17 18:00 Last Admin: 05/20/17 11:09 Dose: 0.25 ml Lisinopril (Prinivil) 20 mg PO DAILY [facility]S [facility]CLUDE 234 BEDS AT [facility] Last Admin: 05/21/17 09:10 Dose: 20 mg Magnesium Hydroxide (Milk Of Magnesia) 30 ml PO BID PRN PRN Reason: Constipation Metformin HCl (Glucophage) 1,000 mg PO DAILY COUNTS INCLUDE 234 BEDS AT [facility] Last Admin: 05/21/17 09:12 Dose: 1,000 mg Metformin HCl (Glucophage) 500 mg PO ACDINNER COUNTS INCLUDE 234 BEDS AT [facility] Last Admin: 05/21/17 15:16 Dose: 500 mg Metformin HCl (Glucophage) 1,000 mg PO ACBRK COUNTS INCLUDE 234 BEDS AT [facility] Metoprolol Tartrate (Lopressor) 5 mg IVPUSH Q4H PRN PRN Reason: Tachycardia Morphine Sulfate (Morphine) 2 mg IVPUSH Q2H PRN PRN Reason: Breakthrough Pain Morphine Sulfate (Duramorph Pf) Confirm Administered Dose 10 mg .ROUTE .STK-MED ONE Stop: 05/20/17 11:58 Multivitamins (Thera) 1 each PO WITHBREAKFAST COUNTS INCLUDE 234 BEDS AT [facility] Last Admin: 05/21/17 06:05 Dose: 1 each Naloxone HCl (Narcan) 0.1 mg IVPUSH Q5M PRN PRN Reason: Oversedation Ondansetron HCl (Zofran) 4 mg IVPUSH Q6H PRN PRN Reason: Nausea/Vomiting Last Admin: 05/20/17 21:20 Dose: 4 mg Ondansetron HCl (Zofran) 4 mg IVPUSH ONETIME PRN PRN Reason: Nausea/Vomiting Stop: 05/20/17 18:00 Estradiol Vaginal (Cream) 0 each VAG ASDIRECTED COUNTS INCLUDE 234 BEDS AT THE [facility] Potassium 99 Mg 0 each PO DAILY@1700 COUNTS INCLUDE 234 BEDS AT THE [facility] Sodium Chloride 3.5 (Gm Opth Ointment) 0 each .XX DAILY@1930 COUNTS INCLUDE 234 BEDS AT THE [facility] Pneumococcal Polyvalent Vaccine (Pneumovax 23) 0.5 ml IM .ONCE ONE Stop: 05/20/17 16:31 Last Admin: 05/21/17 15:34 Dose: Not Given Propofol (Diprivan 20 Ml) Confirm Administered Dose 200 mg .ROUTE .STK-MED ONE Stop: 05/20/17 11:52 Propofol (Diprivan 20 Ml) Confirm Administered Dose 200 mg .ROUTE .STK-MED ONE Stop: 05/20/17 13:45 Scopolamine (Transderm-Scop) 1.5 mg TRDERM ONETIME ONE Stop: 05/20/17 11:46 Last Admin: 05/20/17 11:40 Dose: 1.5 mg Senna (Senna) 8.6 mg PO BID PRN PRN Reason: Constipation Simvastatin (Zocor) 40 mg PO BEDTIME COUNTS INCLUDE 234 BEDS AT [facility] Last Admin: 05/20/17 21:25 Dose: 40 mg Sodium Chloride (Saline Flush) 10 ml FLUSH ASDIRECTED PRN PRN Reason: Keep Vein Open Stop: 05/20/17 18:00 Tamsulosin HCl (Flomax) 0.4 mg PO ONETIME ONE Stop: 05/21/17 13:14 Last Admin: 05/21/17 14:04 Dose: 0.4 mg Tranexamic Acid (Cyklokapron) Confirm Administered Dose 1,000 mg .ROUTE .STK- MED ONE Stop: 05/20/17 11:05 Last Admin: 05/20/17 13:58 Dose: 1,000 mg Vancomycin HCl (Vancomycin) Confirm Administered Dose 1 gm .ROUTE .STK-MED ONE Stop: 05/20/17 11:59 Last Admin: 05/20/17 14:00 Dose: 1 gm - Exam Wound/Incisions: Dressing Dry and Intact General: Alert, Cooperative, No Acute Distress Lungs: Normal Respiratory Effort Extremities: Other (NVS intact for BLE. Gael's negative for BLE. Right thigh soft, min tender.) - Problem List Review Problem List Initiated/Reviewed/Updated: Yes - Assessment Assessment (Free Text/Narrative):: POD#1 - right MANSI - Plan Plan (Free Text/Narrative):: 1. Hgb 9.5 today. 2. Discharge to home with daughter. 3. 325mg ASA BID and TEDs, frequent mobility for VTE prophylaxis. The pt's case was discussed with Dr. Mcarthur.
--- NOTE | 2017-05-23 09:54 | PCM.DCSUM1 ---
Discharge Summary - Hospital Course Brief History: Shahida is a 81 yo female who underwent right MANSI with Dr. Mcarthur on . The procedure was completed under spinal anesthesia with sedation. The pt tolerated the procedures well and was admitted to the Medical-Surgical Unit. The pt received justyna-operative antibiotic therapy. Medical managment was provided by the Hospitalist service and the pt's hospital course was uneventful. A Mepilex dressing was applied to the surgical site at the time of surgery and this remained clean and dry. On POD#1, 325mg ASA BID was initiated for VTE prophylaxis. SCDs and TEDs were also used. The pt participated in P.T. and O.T. and progressed well. On POD#1, the pt's Hgb was 9.5. On POD#1, the pt was deemed appropriate for discharge to home with her daughter. - Discharge Data Discharge Date: 05/21/17 Discharge Disposition: Home, Self-Care 01 Condition: Good - Patient Summary/Data Consults: Consultations 05/20/17 09:14 Consult to Case Management [CONS] Routine Consult to Physician [CONS] Routine OT Evaluation and Treatment [CONS] Routine 05/20/17 09:18 PT Evaluation and Treatment [CONS] Routine 05/21/17 12:25 Consult to Diabetic Nurse Specialist [CONS] Routine - Patient Instructions Diet: Drink 8-10+ Glasses/Day, Diabetic Diet Activity: As Tolerated Activity, Other: MANSI precautions. Driving: Do Not Drive Showering/Bathing: May Shower Showering/Bathing, Other: Keep dressing in place until follow-up. Wound/Incision Care: Keep Operative Site/Wound Site Clean and Dry, Do NOT Change Dressing Notify Provider of: Fever, Increased Pain, Swelling and Redness, Drainage, Nausea and/or Vomiting Other/Special Instructions: Please get up and moving around every hour while awake. This helps to prevent blood clots. Please use your walker and have help with mobility as needed. Please take a 325mg ASPIRIN TWICE DAILY. This also helps to prevent blood clots. Follow the hip precautions that were instructed in the Hospital. You may schedule for P.T. Use the pain medication as needed. The medication may cause drowsiness and constipation. Contact your primary care provider for instructions if you are constipated. You may use a stool softener like docusate sodium or Colace 100mg twice daily and/or a laxative like Miralax daily for constipation. Wear the JULI hose during the day and you may remove these at night. Place ice to the hip often. Place a towel between your skin and the blue pad. Schedule an appointment with your primary care provider for 'routine post-op care'. Call the Clinic with questions or concerns - [phone]. - Discharge Plan Prescriptions/Med Rec: Acetaminophen/HYDROcodone [[place] 325-5 MG] 1 - 2 tab PO Q4H PRN #60 tablet PRN Reason: Pain Aspirin [Ecotrin] 325 mg PO BID #84 tab.ec Home Medications: Home Meds Estradiol [Estrace 0.01% Vaginal Crm] 1 dose VAG ASDIRECTED 10/27/14 [History] Hypromellose [GenTeal Severe Dry Eye Gel] 1 dose EYEBOTH TID PRN 10/27/14 [ History] Lisinopril 20 mg PO DAILY 06/29/15 [History] Potassium 99 mg PO BEDTIME 06/29/15 [History] Simvastatin [Zocor] 40 mg PO BEDTIME 06/29/15 [History] Acetaminophen [Tylenol Extra Strength] 1,000 mg PO TID PRN 05/17/17 [History] Ca Carbonate/Vitamin D3/Vit K [Calcium + D Soft Chewable Tab] 1 tab PO DAILY [History] Diltiazem HCl [Diltiazem 24Hr ER] 120 mg PO DAILY 05/17/17 [History] Levothyroxine [Synthroid] 88 mcg PO DAILY 05/17/17 [History] Sodium Chloride 3.5 gm OP DAILY 05/20/17 [History] Acetaminophen/HYDROcodone [[place] 325-5 MG] 1 - 2 tab PO Q4H PRN #60 tablet 05/21 [Rx] Aspirin [Ecotrin] 325 mg PO BID #84 tab.ec 05/21/17 [Rx] metFORMIN HCl [Metformin HCl] 1,000 mg PO QAM 05/21/17 [History] metFORMIN HCl [Metformin HCl] 500 mg PO QPM 05/21/17 [History] Patient Handouts: Total Hip Replacement, [id number], Hip Rehabilitation After Surgery, Aspirin, ASA oral tablets, Total Hip Replacement, Care After, [id number] Referrals: Lynn Jones PA-C [Physician Construction Stonemason] - 05/28/17 11:00 am (Second appt with Dr. Mcarthur will be on 06/04/17 at 9:30 AM ) Mandeep Frost Jr, MD [Primary Care Provider] - - Patient Data Vitals - Most Recent: Last Vital Signs Temp 98.4 F 05/21/17 15:14 Pulse 101 H 05/21/17 15:14 Resp 14 05/21/17 11:43 BP 109/94 H 05/21/17 15:14 Pulse Ox 95 05/21/17 15:14 Weight - Most Recent: 126 lb Med Orders - Current: Current Medications Discontinued Medications Acetaminophen (Tylenol) 975 mg PO TID PRN PRN Reason: Pain Hydrocodone Bitart/Acetaminophen ([place] 325-5 Mg) 1 - 2 tab PO Q4H PRN PRN Reason: Pain Last Admin: 05/21/17 11:46 Dose: 2 tab Artificial Tears (Isopto Tears 0.5% Ophth Soln) 0 ml EYEBOTH TID PRN PRN Reason: Dry Eyes Aspirin (Ecotrin) 325 mg PO BID [facility] Last Admin: 05/21/17 09:09 Dose: 325 mg Bisacodyl (Dulcolax) 5 mg PO DAILY PRN PRN Reason: Constipation Bupivacaine HCl (Marcaine 0.25%) Confirm Administered Dose 30 ml .ROUTE .STK- MED ONE Stop: 05/20/17 11:06 Last Admin: 05/20/17 13:45 Dose: 30 ml Calcium Carbonate (Calcium Carbonate/Vitamin D 1500 Mg-200 Unit) 1 tab PO DAILY [facility] Last Admin: 05/21/17 09:12 Dose: 1 tab Cefazolin Sodium (Ancef) Confirm Administered Dose 2 gm .ROUTE .STK-MED ONE Stop: 05/20/17 11:06 Last Admin: 05/20/17 13:45 Dose: 2 gm Cefazolin Sodium (Ancef) Confirm Administered Dose 2 gm .ROUTE .STK-MED ONE Stop: 05/20/17 11:53 Morphine Sulfate 8 mg/Epinephrine HCl 0.3 mg/Cefuroxime Sodium 750 mg/Ketorolac Tromethamine 30 mg/Sodium Chloride 27.9 ml 0 mg .XX ONETIME ONE Stop: 05/20/17 10:31 Last Admin: 05/20/17 13:47 Dose: 788.3 mg Dextrose/Water (Dextrose 50% In Water) 50 ml IVPUSH ASDIRECTED PRN PRN Reason: Hypoglycemia Diltiazem HCl (Cardizem Cd) 120 mg PO DAILY [facility] Last Admin: 05/21/17 09:08 Dose: 120 mg Diphenhydramine HCl (Benadryl) 25 mg IVPUSH Q6H PRN PRN Reason: Pruritis Stop: 05/20/17 18:00 Diphtheria/Tetanus/Acell Pertussis (Adacel) 0.5 ml IM .ONCE ONE Stop: 05/21/17 09:15 Last Admin: 05/21/17 15:34 Dose: Not Given Docusate Sodium (Colace) 100 mg PO BID [facility] Last Admin: 05/21/17 09:08 Dose: 100 mg Famotidine (Pepcid) 20 mg PO Q12H [facility] Last Admin: 05/20/17 21:25 Dose: 20 mg Famotidine (Pepcid) 20 mg PO DAILY [facility] Last Admin: 05/21/17 09:11 Dose: 20 mg Fentanyl (Sublimaze) Confirm Administered Dose 100 mcg .ROUTE .STK-MED ONE Stop: 05/20/17 11:53 Hydralazine HCl (Apresoline) 10 mg IVPUSH Q4H PRN PRN Reason: Hypertension Lactated Ringer's (Ringers, Lactated) 1,000 mls @ 125 mls/hr IV ASDIRECTED [facility] Stop: 05/20/17 23:00 Last Admin: 05/20/17 11:10 Dose: 125 mls/hr Cefazolin Sodium/Dextrose 2 gm (/ Premix) 50 mls @ 100 mls/hr IV Q8H [facility] Stop: 05/21/17 12:29 Last Admin: 05/21/17 11:45 Dose: 100 mls/hr Sodium Chloride (Normal Saline) 500 mls @ 999 mls/hr IV .BOLUS ONE Stop: 05/21/17 07:40 Last Admin: 05/21/17 07:10 Dose: 999 mls/hr Sodium Chloride (Normal Saline) Confirm Administered Dose 1,000 mls @ as directed .ROUTE .STK-MED ONE Stop: 05/21/17 06:48 Last Admin: 05/21/17 07:42 Dose: Not Given Insulin Aspart (Novolog) 0 unit SUBCUT QIDACANDBED [facility] PRN Reason: Protocol Last Admin: 05/21/17 11:33 Dose: 1 unit Iodine (Iodine 2% Mild Tincture) Confirm Administered Dose 30 ml .ROUTE .STK- [facility] ONE Stop: 05/20/17 11:06 Last Admin: 05/20/17 13:40 Dose: 30 ml Levothyroxine Sodium (Synthroid) 88 mcg PO DAILY [facility] Last Admin: 05/21/17 09:09 Dose: 88 mcg Lidocaine/Sodium Bicarbonate (Buffered Lidocaine 1% In Ns 8.4%) 0.25 ml .XX ONETIME PRN PRN Reason: Prior to IV Start Stop: 05/20/17 18:00 Last Admin: 05/20/17 11:09 Dose: 0.25 ml Lisinopril (Prinivil) 20 mg PO DAILY [facility] Last Admin: 05/21/17 09:10 Dose: 20 mg Magnesium Hydroxide (Milk Of Magnesia) 30 ml PO BID PRN PRN Reason: Constipation Metformin HCl (Glucophage) 1,000 mg PO DAILY [facility] Last Admin: 05/21/17 09:12 Dose: 1,000 mg Metformin HCl (Glucophage) 500 mg PO ACDINNER [facility] Last Admin: 05/21/17 15:16 Dose: 500 mg Metformin HCl (Glucophage) 1,000 mg PO ACBRK [facility] Metoprolol Tartrate (Lopressor) 5 mg IVPUSH Q4H PRN PRN Reason: Tachycardia Morphine Sulfate (Morphine) 2 mg IVPUSH Q2H PRN PRN Reason: Breakthrough Pain Morphine Sulfate (Duramorph Pf) Confirm Administered Dose 10 mg .ROUTE .[facility] ONE Stop: 05/20/17 11:58 Multivitamins (Thera) 1 each PO WITHBREAKFAST [facility] Last Admin: 05/21/17 06:05 Dose: 1 each Naloxone HCl (Narcan) 0.1 mg IVPUSH Q5M PRN PRN Reason: Oversedation Ondansetron HCl (Zofran) 4 mg IVPUSH Q6H PRN PRN Reason: Nausea/Vomiting Last Admin: 05/20/17 21:20 Dose: 4 mg Ondansetron HCl (Zofran) 4 mg IVPUSH ONETIME PRN PRN Reason: Nausea/Vomiting Stop: 05/20/17 18:00 Estradiol Vaginal (Cream) 0 each VAG ASDIRECTED [facility] Potassium 99 Mg 0 each PO DAILY@1700 [facility] Sodium Chloride 3.5 (Gm Opth Ointment) 0 each .XX DAILY@1930 [facility] Pneumococcal Polyvalent Vaccine (Pneumovax 23) 0.5 ml IM .ONCE ONE Stop: 05/20/17 16:31 Last Admin: 05/21/17 15:34 Dose: Not Given Propofol (Diprivan 20 Ml) Confirm Administered Dose 200 mg .ROUTE .STK-MED ONE Stop: 05/20/17 11:52 Propofol (Diprivan 20 Ml) Confirm Administered Dose 200 mg .ROUTE .STK-MED ONE Stop: 05/20/17 13:45 Scopolamine (Transderm-Scop) 1.5 mg TRDERM ONETIME ONE Stop: 05/20/17 11:46 Last Admin: 05/20/17 11:40 Dose: 1.5 mg Senna (Senna) 8.6 mg PO BID PRN PRN Reason: Constipation Simvastatin (Zocor) 40 mg PO BEDTIME [facility] Last Admin: 05/20/17 21:25 Dose: 40 mg Sodium Chloride (Saline Flush) 10 ml FLUSH ASDIRECTED PRN PRN Reason: Keep Vein Open Stop: 05/20/17 18:00 Tamsulosin HCl (Flomax) 0.4 mg PO ONETIME ONE Stop: 05/21/17 13:14 Last Admin: 05/21/17 14:04 Dose: 0.4 mg Tranexamic Acid (Cyklokapron) Confirm Administered Dose 1,000 mg .ROUTE .STK- MED ONE Stop: 05/20/17 11:05 Last Admin: 05/20/17 13:58 Dose: 1,000 mg Vancomycin HCl (Vancomycin) Confirm Administered Dose 1 gm .ROUTE .STK-MED ONE Stop: 05/20/17 11:59 Last Admin: 05/20/17 14:00 Dose: 1 gm *Q Meaningful Use (DIS) - VTE *Q VTE Criteria *Q: - Stroke *Q Stroke Criteria *Q: - AMI *Q AMI Criteria *Q:
--- NOTE | 2017-05-28 16:05 | PCM.OPNOTE ---
- General Post-Op/Procedure Note Date of Surgery/Procedure: 05/20/17 Operative Procedure(s): right total hip arthroplasty Pre Op Diagnosis: right hip osteoarthrosis Post-Op Diagnosis: Same Anesthesia Technique: Local, MAC, Spinal Primary Surgeon: Jeb Mcarthur Anesthesia Provider: William Christopher Fire Extinguisher Repairer Inspector: Lynn Jones Fire Extinguisher Repairer Inspector: Arianna Norris EBJai in mLs: 300 Complications: None Condition: Good
--- NOTE | 2017-05-28 17:13 | OR ---
DATE OF OPERATION: 05/20/2017 SURGEON: Jeb Mcarthur MD OPERATION PERFORMED: Right total hip osteoarthrosis. PREOPERATIVE DIAGNOSIS: Right hip osteoarthrosis. POSTOPERATIVE DIAGNOSIS: Right hip osteoarthrosis. ANESTHESIA: Technique, local MAC with spinal. ANESTHESIA PROVIDER: William Christopher. ASSISTANTS: Lynn Jones PA-C and Arianna Norris LPN. ESTIMATED BLOOD LOSS: 300 mL. COMPLICATIONS: None. CONDITION: Stable. DESCRIPTION OF PROCEDURE: The patient was identified in the preop holding area, proper site was marked and identified by the surgeon. The patient was taken back to the operating theater where after adequate anesthesia, the patient was placed in a left lateral decubitus position. Axillary roll was placed and all bony prominences were well padded. Pegs were then placed and padded as well. The patient's gluteal fold was parallel to the floor. Right hip was then sterilely prepped and draped in the usual sterile fashion. OR time-out was performed. The patient received 2 g of IV Ancef. At this time, standard posterior incision was made centered over the greater trochanter. The IT band and gluteal fascia was incised along the incisional length and Charnley retractor was placed. Short external rotators and piriformis tendon were identified, takedown of the piriformis tendon and short external rotators down to the level of lesser trochanter. The hip was then dislocated. At this time, neck cut guide was placed and the neck cut was completed, it was found to be adequate resection. Anterior and posterior acetabular retractors were placed and there was adequate visualization. At this time, excess labrum and pulvinar were removed. Starting with a size 42 reamer, I was able to ream up to a size 54, 50 mm cup, the trial was found to have adequate fixation. At this time, a 50 mm Tritanium acetabular cup was then impacted into place and a roughly 50 degrees of abduction as well as 20 to 30 degrees of anteversion. At this time, it was found to be adequately seated. A 36 mm flat liner was then impacted into place. Attention was turned to the femur. The femoral elevator was placed. A box chisel was used out laterally and starter awl was placed down the canal. Starting with the 0 broach, I was able to broach up to a size 3, which was found to be rotationally and vertically stable, 127 degree neck angle was then placed and a 36 and 0 was trialed and was found to have adequate latter-day of leg length and was stable throughout range of motion with no dislocation. At this time, bone hook was used for dislocation of the implant. 36 mm Marcos size 3 Accolate II stem was then impacted into place and a 36 mm +0 head was impacted into place. The patient's hip was then relocated. A 1 L dilute Betadine solution was irrigated through the hip along with 3L pulse lavage irrigation with Ancef. Periarticular injection was then completed. Two #5 Ethibond sutures were used for closure of the short external rotators and capsule. 1 g of vancomycin powder along with topical tranexamic acid was placed deep, #2 barbed suture was used for closure of IT band and gluteal fascia, 2-0 Vicryl was used subcutaneously and Prineo was used for the skin. The patient tolerated the procedure well and sent to PACU in stable condition. MANSOOR /[id number]
== END 2017-05-21 16:30 | disposition home or self-care (01) | DRG 470 ==
LOC: JD.MS 05-20 09:43
PROVIDERS: ADMIT Orthopaedic Surgery; ATTEND Orthopaedic Surgery
PROC: 0SR90JA Replacement of Right Hip Joint with Synthetic Substitute, Uncemented, Open Approach (ICD-10-PCS; principal; 2017-05-20)
DX: M16.11 Unilateral primary osteoarthritis, right hip (principal); I10 Essential (primary) hypertension; E11.9 Type 2 diabetes mellitus without complications; E03.9 Hypothyroidism, unspecified; M15.9 Polyosteoarthritis, unspecified; Z79.890 Hormone replacement therapy; Z79.82 Long term (current) use of aspirin; Z79.84 Long term (current) use of oral hypoglycemic drugs; Z79.899 Other long term (current) drug therapy
CPT/HCPCS: 01214; 36415; 73501-26-RT; 73501-RT; 80053; 82962; 85025; 86850; 86900; 86901; 87641; 94762; 97110-GP; 97116-GP; 97161-GP; 97165-GO; 97535-GO; A9270-GY; C1776; J0171; J0690; J0697; J1815-GY; J1885; J2270; J2405; J2704; J3010; J3370; J3490; J7040; J7120

== ENCOUNTER 2021-12-09 17:44 | Emergency (ER) | payer MEDICARE, MEDICAID ==
[2021-12-09 17:56] VITALS: BP 170/82; PULSE 85
[2021-12-09] MEDS ORDERED: Sulfamethoxazole/Trimethoprim 800-160 MG Tab PO ONE (20:16)
== END 2021-12-09 20:55 | disposition home or self-care (01) ==
LOC: JD.ED 17:44
DX: S60.212A Contusion of left wrist, initial encounter (principal); N30.00 Acute cystitis without hematuria; I10 Essential (primary) hypertension; E11.9 Type 2 diabetes mellitus without complications; E03.9 Hypothyroidism, unspecified; Z88.1 Allergy status to other antibiotic agents; Z88.8 Allergy status to other drugs, medicaments and biological substances; Z79.899 Other long term (current) drug therapy; Z86.16 Personal history of COVID-19; W19.XXXA Unspecified fall, initial encounter
CPT/HCPCS: 36415; 70450; 73110; 80053; 81001; 84484; 85025; 85379; 86140; 87086; 93005; 99284; A9270; 83880; 93010

== ENCOUNTER 2023-05-03 03:45 | Emergency (ER) | payer MEDICARE, MEDICAID ==
[2023-05-03 05:22] VITALS: BP 149/72; PULSE 91
== END 2023-05-03 05:20 | disposition home or self-care (01) ==
LOC: JD.ED 03:45
DX: S70.02XA Contusion of left hip, initial encounter (principal); I10 Essential (primary) hypertension; E11.9 Type 2 diabetes mellitus without complications; E03.9 Hypothyroidism, unspecified; Z86.16 Personal history of COVID-19; Z79.82 Long term (current) use of aspirin; Z79.84 Long term (current) use of oral hypoglycemic drugs; Z79.899 Other long term (current) drug therapy; Z88.1 Allergy status to other antibiotic agents; Z88.8 Allergy status to other drugs, medicaments and biological substances; W19.XXXA Unspecified fall, initial encounter
CPT/HCPCS: 73502-26-LT; 73502-LT; 99283; 99284

== ENCOUNTER 2023-10-13 12:30 | Inpatient (IN) | payer MEDICARE, MEDICAID ==
[2023-10-13] MEDS ORDERED: Sodium Chloride 0.9% 10 ML Syringe FLUSH PRN ×2 (12:56→16:12)
[2023-10-13] MEDS ORDERED: Sodium Chloride 0.9% 1,000 ML IV STA (12:56)
[2023-10-13] MEDS ORDERED: Ondansetron 4 MG/2 ML SDV IVPUSH ONE (13:08)
[2023-10-13 13:13] LABS: BASOPHILS ABSOLUTE AUTO 0.2 K/mm3 (0.0-0.2); BASOPHILS PERCENT AUTO 0.6 % (0.0-1.0); EOSINOPHILS ABSOLUTE AUTO 0.1 K/mm3 (0.0-0.4); EOSINOPHILS PERCENT AUTO 0.5 % (0.0-6.0); HEMATOCRIT 27.5 % (37.0-47.0); HEMOGLOBIN 8.5 gm/dl (12.0-16.0); IMMATURE GRAN ABSOLUTE AUTO 1.47 K/mm3 (0.00-0.05); IMMATURE GRAN PERCENT AUTO 5.6 % (0.0-0.4); LYMPHOCYTES PERCENT AUTO 7.7 % (24.0-44.0); MEAN CORPUSCULAR HEMOGLOBIN 27.2 pg (28.0-32.0); MEAN CORPUSCULAR HGB CONC 30.9 g/dl (32.0-36.0); MEAN CORPUSCULAR VOLUME 88.1 fl (83.0-99.0); MEAN PLATELET VOLUME 10.2 fl (9.4-12.3); MONOCYTES ABSOLUTE AUTO 2.5 K/mm3 (0.0-0.8); MONOCYTES PERCENT AUTO 9.5 % (0.0-8.0); NEUTROPHILS ABSOLUTE AUTO 20.2 K/mm3 (1.8-7.7); NEUTROPHILS PERCENT AUTO 76.1 % (41.0-71.0); NRBC ABSOLUTE 0.46 (0.00-0.02); NRBC PERCENT 1.7 % (0.0-0.2); PLATELET COUNT,PLT 215 K/mm3 (150-400); RED BLOOD CELL COUNT 3.12 M/mm3 (4.10-5.30); WHITE BLOOD CELL COUNT,WBC 26.44 K/mm3 (3.9-11.3)
[2023-10-13] MEDS ORDERED: Pantoprazole 40 MG Vial IVPUSH ONE (13:24)
[2023-10-13 13:35] LABS: A/G RATIO 0.9 (1-2); ANION GAP 18.1 (5-15); BILIRUBIN TOTAL 0.3 mg/dL (0.2-1.0); BUN/CREATININE RATIO 62.5 (14-18); CALCIUM 10.1 mg/dL (8.5-10.1); CREATININE 1.6 mg/dL (0.55-1.02); EST CRCL DRUG DOSING (CG) 18.13 mL/min; POTASSIUM,K 4.1 mEq/L (3.5-5.1); PROTEIN TOTAL,TP 6.4 g/dl (6.4-8.2)
[2023-10-13 13:36] LABS: SLIDE REVIEW ABNORMAL SMEAR
[2023-10-13 14:03] LABS: APPEARANCE,URINE SLT CLOUDY (Clear); BILIRUBIN,URINE NEGATIVE (Negative); COLOR,URINE YELLOW (Yellow); GLUCOSE,URINE NEGATIVE (Negative); KETONES,URINE NEGATIVE (Negative); LEUKOCYTE ESTERASE,URINE 1+ (Negative); NITRITE,URINE NEGATIVE (Negative); OCCULT BLOOD,URINE NEGATIVE (Negative); PH,URINE 5.5 (5.0-8.0); PROTEIN,URINE NEGATIVE (Negative); UROBILINOGEN,URINE 0.2 (0.2-1.0)
[2023-10-13 14:10] LABS: EPITHELIAL CELLS,URINE 0-5 /hpf (0-5); RBC,URINE 0-5 /hpf (0-5); WBC,URINE 20-30 /hpf (0-5)
[2023-10-13 14:11] LABS: BACTERIA,URINE MODERATE /hpf (FEW); MUCUS,URINE FEW /hpf (FEW)
[2023-10-13] MEDS ORDERED: Iopamidol 612 MG/ML 100 ML Bottle IVPUSH ONE (14:11)
[2023-10-13] MEDS ORDERED: Sodium Chloride 0.9% 10 ML Syringe FLUSH ONE (14:11)
[2023-10-13] MEDS ORDERED: cefTRIAXone 2 GM in Sodium Chloride 0.9% 100 ML IV ONE (14:27)
[2023-10-13] MEDS ORDERED: Sodium Chloride 0.9% 1,000 ML IV ONE (14:36)
[2023-10-13] MEDS ORDERED: Acetaminophen 325 MG Tab PO PRN (16:04)
[2023-10-13] MEDS ORDERED: Acetaminophen/HYDROcodone 325-5 MG Tab PO PRN (16:04)
[2023-10-13] MEDS ORDERED: Morphine 2 MG/ML SYRINGE IVPUSH PRN (16:04)
[2023-10-13] MEDS ORDERED: Ondansetron 4 MG/2 ML SDV IV PRN (16:04)
[2023-10-13] MEDS ORDERED: Lactated Ringers 1,000 ML IV SCH (16:15)
[2023-10-13 16:33] LABS: HEMATOCRIT 25.6 % (37.0-47.0); HEMOGLOBIN 7.7 gm/dl (12.0-16.0)
[2023-10-13] MEDS: Pantoprazole 40 MG Vial IV SCH (20:51)
[2023-10-13] MEDS ORDERED: atorvaSTATin 20 MG Tab PO SCH (21:00)
[2023-10-14 00:08] LABS: HEMATOCRIT 21.9 % (37.0-47.0)
[2023-10-14 00:10] LABS: HEMOGLOBIN 6.5 gm/dl (12.0-16.0)
[2023-10-14] MEDS ORDERED: Sodium Chloride 0.9% 250 ML IV SCH (00:30)
[2023-10-14 05:58] LABS: BASOPHILS ABSOLUTE AUTO 0.1 K/mm3 (0.0-0.2); BASOPHILS PERCENT AUTO 0.7 % (0.0-1.0); EOSINOPHILS ABSOLUTE AUTO 0.2 K/mm3 (0.0-0.4); HEMATOCRIT 25.7 % (37.0-47.0); HEMOGLOBIN 7.9 gm/dl (12.0-16.0); IMMATURE GRAN PERCENT AUTO 5.2 % (0.0-0.4); LYMPHOCYTES PERCENT AUTO 11.5 % (24.0-44.0); MEAN CORPUSCULAR HEMOGLOBIN 27.4 pg (28.0-32.0); MEAN CORPUSCULAR HGB CONC 30.7 g/dl (32.0-36.0); MEAN CORPUSCULAR VOLUME 89.2 fl (83.0-99.0); MEAN PLATELET VOLUME 10.9 fl (9.4-12.3); MONOCYTES ABSOLUTE AUTO 1.3 K/mm3 (0.0-0.8); MONOCYTES PERCENT AUTO 7.8 % (0.0-8.0); NEUTROPHILS ABSOLUTE AUTO 12.8 K/mm3 (1.8-7.7); NEUTROPHILS PERCENT AUTO 73.8 % (41.0-71.0); NRBC PERCENT 1.2 % (0.0-0.2); PLATELET COUNT,PLT 179 K/mm3 (150-400); RED BLOOD CELL COUNT 2.88 M/mm3 (4.10-5.30); WHITE BLOOD CELL COUNT,WBC 17.28 K/mm3 (3.9-11.3)
[2023-10-14] MEDS ORDERED: Levothyroxine 88 MCG Tab PO SCH (06:00)
[2023-10-14 06:26] LABS: ALBUMIN 2.7 g/dl (3.4-5.0); ANION GAP 14.7 (5-15); BILIRUBIN TOTAL 0.2 mg/dL (0.2-1.0); BUN/CREATININE RATIO 48.5 (14-18); CALCIUM 8.9 mg/dL (8.5-10.1); CREATININE 1.3 mg/dL (0.55-1.02); EST CRCL DRUG DOSING (CG) 24.57 mL/min; POTASSIUM,K 4.7 mEq/L (3.5-5.1); PROTEIN TOTAL,TP 5.5 g/dl (6.4-8.2)
[2023-10-14] MEDS: Insulin Lispro 100 Unit/ML 3 ML KwikPen SUBCUT SCH ×3 (06:57→18:15)
[2023-10-14 07:26] LABS: SLIDE REVIEW ABNORMAL SMEAR
[2023-10-14] MEDS ORDERED: Calcium Carbonate/Vitamin D3 600 MG-200 Units Tab PO SCH (09:00)
[2023-10-14] MEDS: Pantoprazole 40 MG Vial IV SCH (09:03)
[2023-10-14] MEDS ORDERED: Diltiazem 120 MG Cap.CD PO SCH (09:15)
[2023-10-14 12:28] LABS: HEMATOCRIT 27.4 % (37.0-47.0); HEMOGLOBIN 8.5 gm/dl (12.0-16.0)
[2023-10-14] MEDS ORDERED: cefTRIAXone 1 GM in Sodium Chloride 0.9% 100 ML IV SCH (15:00)
[2023-10-14] MEDS ORDERED: Carboxymethylcellulose Sodium 1% Ophth Gel 15 ML Bottle EYEBOTH SCH (15:00)
[2023-10-14 17:11] VITALS: BP 143/51; PULSE 86
== END 2023-10-14 16:50 | DRG 377 ==
LOC: JD.ED 12:30 → JD.MS 16:02
PROVIDERS: ADMIT Student in an Organized Health Care Education/Training Program; ATTEND Student in an Organized Health Care Education/Training Program
PROC: 3E03329 Introduction of Other Anti-infective into Peripheral Vein, Percutaneous Approach (ICD-10-PCS; 2023-10-13)
PROC: 30233N1 Transfusion of Nonautologous Red Blood Cells into Peripheral Vein, Percutaneous Approach (ICD-10-PCS; principal; 2023-10-14)
DX: K92.2 Gastrointestinal hemorrhage, unspecified (principal); A41.9 Sepsis, unspecified organism; R65.20 Severe sepsis without septic shock; N30.00 Acute cystitis without hematuria; N17.9 Acute kidney failure, unspecified; D64.89 Other specified anemias; D62 Acute posthemorrhagic anemia; E11.9 Type 2 diabetes mellitus without complications; E87.29 Other acidosis; E87.1 Hypo-osmolality and hyponatremia; Z66 Do not resuscitate; I10 Essential (primary) hypertension; E89.0 Postprocedural hypothyroidism; E86.0 Dehydration; S70.02XA Contusion of left hip, initial encounter; M19.90 Unspecified osteoarthritis, unspecified site; W01.0XXA Fall on same level from slipping, tripping and stumbling without subsequent striking against object, initial encounter; Z96.659 Presence of unspecified artificial knee joint; Z96.641 Presence of right artificial hip joint; E11.65 Type 2 diabetes mellitus with hyperglycemia; I95.9 Hypotension, unspecified; Z88.1 Allergy status to other antibiotic agents; Z88.8 Allergy status to other drugs, medicaments and biological substances; Z79.82 Long term (current) use of aspirin; Z79.84 Long term (current) use of oral hypoglycemic drugs; Z79.899 Other long term (current) drug therapy; Z90.710 Acquired absence of both cervix and uterus; Z86.16 Personal history of COVID-19; Z98.49 Cataract extraction status, unspecified eye; Z90.49 Acquired absence of other specified parts of digestive tract; Z79.890 Hormone replacement therapy; Y92.023 Bedroom in mobile home as the place of occurrence of the external cause
CPT/HCPCS: 36415; 73502; 74177; 80053; 81001; 83605; 83690; 85025; 86850; 86900; 86901; 86922; 87040 ×2; 87086; 96361; 96365; 96375; 99285; C9113; J0696; J2405; J3490 ×3; J7030 ×2; Q9967; 36430; 82947; 85014; 85018; 87641; 97116-GP; 97161-GP; A9270-GY; J1815; J7050; J7120; P9016

== ENCOUNTER 2024-12-16 08:32 | Day surgery (SDC) | payer MEDICARE, MEDICAID ==
[2024-12-16] MEDS ORDERED: Lidocaine 1% 4 ML ONE (08:49)
[2024-12-16] MEDS ORDERED: Propofol 200 MG/20 ML SDV ONE (08:49)
[2024-12-16] MEDS: Lactated Ringers 1,000 ML IV SCH (09:20)
[2024-12-16 12:25] VITALS: BP 161/61; PULSE 74
== END 2024-12-16 11:05 | disposition home or self-care (01) ==
LOC: JD.SDS 08:32
PROVIDERS: ATTEND Surgery
DX: D50.9 Iron deficiency anemia, unspecified (principal); K21.00 Gastro-esophageal reflux disease with esophagitis, without bleeding; K29.50 Unspecified chronic gastritis without bleeding; K31.A0 Gastric intestinal metaplasia, unspecified; K29.80 Duodenitis without bleeding; K44.9 Diaphragmatic hernia without obstruction or gangrene; I11.0 Hypertensive heart disease with heart failure; I50.9 Heart failure, unspecified; E78.00 Pure hypercholesterolemia, unspecified; E11.9 Type 2 diabetes mellitus without complications; E03.9 Hypothyroidism, unspecified; Z79.890 Hormone replacement therapy; Z79.899 Other long term (current) drug therapy; Z88.5 Allergy status to narcotic agent; Z88.8 Allergy status to other drugs, medicaments and biological substances
CPT/HCPCS: 43239; J2003; J2704; J7120; 00731; 88305; 88342; 99100